=== PATIENT | female | born 1955 | race Caucasian/White ===

== ENCOUNTER 2020-11-20 10:19 | Emergency (ER) | payer MEDICARE, MEDICAID ==
[~2020-11-20] VITALS: Ht 157.5 cm; Wt 112.0 kg
[~2020-11-20 10:19] MED LIST: ALBU18HF2 INH; ALLO100T PO; APIX5TAB3 PO; BUDE10.2 INH; DILT30TA2 PO; DIVA500T9 PO; ERGO500041 PO; FAMO20TA8 PO; FURO40TA4 PO; GABA300C PO; IBUP-1985 PO; LEVO75TA PO; LORA-512 PO; MULT-1085 PO; OXYB10TA4 PO; PRIM50TA27 PO; QUET50TA24 PO; TOPI50TA24 PO
[2020-11-20] MEDS ORDERED: normal saline 1000ML IV soln IVB ONE (15:55)
[2020-11-20 16:31] LABS: BASOPHILS % (AUTO) 0.4 % (0-1); EOSINOPHILS # (AUTO) 0.1 X10'3 (0-0.9); EOSINOPHILS % (AUTO) 1.2 % (0-6); HEMATOCRIT 39.6 % (35.0-45.0); HEMOGLOBIN 13.2 g/dl (12.0-16.0); LYMPHOCYTES # (AUTO) 2.1 X10'3 (1.1-4.8); LYMPHOCYTES % (AUTO) 28.5 % (21-51); MEAN CORPUSCULAR HGB CONC 33.3 g/dL (33.0-36.5); MEAN CORPUSCULAR VOLUME 92.9 FL (78-98); MONOCYTES # (AUTO) 0.7 X10'3 (0-0.9); MONOCYTES % (AUTO) 9.6 % (2-12); NEUTROPHILS # (AUTO) 4.4 X10'3 (1.8-7.7); NEUTROPHILS % (AUTO) 60.3 % (42-75); PLATELET COUNT 296 X10'3 (140-440); RED BLOOD COUNT 4.26 X10'6 (4.20-5.60); RED CELL DISTRIBUTION WIDTH 13.9 % (11.5-14.5); WHITE BLOOD COUNT 7.3 X10'3 (4.5-11.0)
[2020-11-20 16:39] LABS: ALANINE AMINOTRANSFERASE 18 U/L (12-78); ALBUMIN 3.6 G/DL (3.4-5.0); ALBUMIN/GLOBULIN RATIO 1.1 (1.1-1.5); ALKALINE PHOSPHATASE 66 IU/L (46-116); ANION GAP 9 (8-16); ASPARTATE AMINO TRANSFERASE 20 U/L (10-37); BILIRUBIN,TOTAL 0.5 MG/DL (0.1-1.0); BLOOD UREA NITROGEN 16 MG/DL (7-18); BUN/CREATININE RATIO 19.5 (6.6-38.0); CALCIUM 9.5 MG/DL (8.5-10.1); CHLORIDE 111 MMOL/L (99-107); CREATININE 0.82 MG/DL (0.40-0.90); GLUCOSE 82 MG/DL (70-104); POTASSIUM 4.3 MMOL/L (3.5-5.1); SODIUM 144 MMOL/L (135-145); TOTAL CARBON DIOXIDE 23.9 MMOL/L (24-32); eGFR 70 ML/MIN
[2020-11-20 16:43] LABS: TROPONIN I < 0.04 NG/ML (0.0-0.05)
[2020-11-20] MEDS ORDERED: CARSR60C PO (17:32)
[2020-11-20] MEDS ORDERED: APIX5TAB3 PO (17:32)
--- NOTE | 2020-11-20 18:48 | NUR ---
PT GIVEN PITCHER OF WATER, DRINKING. SPOKE TO PA, NOTIFIED PT IS DRINKING. OK TO NON-ADMIN FLUIDS AND AVOID IV.
--- NOTE | 2020-11-20 19:23 | NUR ---
CALLED FOR A TAXI, ETA 30 MIN
[2020-11-20 19:30] VITALS: BP 142/102
== END 2020-11-20 19:31 | disposition home or self-care (01) ==
LOC: ER 10:20
DX: R07.89 Other chest pain (principal); R42 Dizziness and giddiness; I48.91 Unspecified atrial fibrillation; I10 Essential (primary) hypertension; J45.909 Unspecified asthma, uncomplicated; Z91.14 Patient's other noncompliance with medication regimen; Z79.899 Other long term (current) drug therapy
CPT/HCPCS: 36415; 71045; 80053; 84484; 85025; 93005; 99285